=== PATIENT | male | born 1940 | race Hispanic/Latino ===

== ENCOUNTER 2020-11-01 09:12 | Outpatient (CLI) | payer BC, MEDICARE, SELFPAY ==
[2020-11-01 11:24] LABS: Hemoglobin 12.8 g/dL (13.5-17.5); Mean Corpuscular HGB CONC 32.3 g/dL (32.0-36.0); Mean Corpuscular Hemoglobin 27.1 pg (27.0-33.0); Mean Corpuscular Volume 83.7 fl (81.2-95.1); Mean Platelet Volume 10.4 fl (7.4-10.4); Platelet Count 198 10x3/uL (150-450); RBC Distribution Width 14.5 % (11.5-14.5); Red Blood Cell (RBC) Count 4.73 10x6/uL (4.32-5.72); White Blood Cell (WBC) Count 7.8 10x3/uL (3.5-10.5)
[2020-11-01 11:43] LABS: INR-International Normal Ratio 0.9; PTT 25.1 sec (22.0-33.0); Prothrombin Time 10.3 sec (9.5-12.1)
[2020-11-01 12:11] LABS: Anion Gap 14 mmol/L (10-20); BUN (Urea Nitrogen) 16 mg/dL (8.4-25.7); Calc. Creatinine Clearance 0 mL/min (70-130); Calcium 9.2 mg/dL (7.8-10.44); Carbon Dioxide 24 mmol/L (23-31); Chloride 106 mmol/L (98-107); Glucose 135 mg/dL (83-110); Potassium 4.6 mmol/L (3.5-5.1); Sodium 139 mmol/L (136-145)
[2020-11-01 17:59] LABS: SARS-CoV-2 PCR by NAA Not Detected (NotDetected)
== END 2020-11-01 09:13 | disposition home or self-care (01) ==
LOC: CSHLAB 09:12
PROVIDERS: ATTEND Specialist
DX: Z01.812 Encounter for preprocedural laboratory examination (principal); Z20.822 Contact with and (suspected) exposure to COVID-19; I65.29 Occlusion and stenosis of unspecified carotid artery
CPT/HCPCS: 80048; 85027; 85610; 85730; 87635; U0003; U0005

== ENCOUNTER 2020-11-06 07:40 | Inpatient (IN) | payer MEDICARE ==
[2020-11-06] MEDS ORDERED: Heparin 10,000 UNITS/ 10 ML VIAL ONE (08:23)
[2020-11-06] MEDS ORDERED: Adenosine 6 MG/2 ML VIAL ONE (08:23)
[2020-11-06] MEDS ORDERED: Lidocaine 1% (PF) 30 ML VIAL ONE (08:23)
[2020-11-06] MEDS ORDERED: Atropine Sulfate 0.4 mg/1 ml Vial ONE (08:28)
[2020-11-06] MEDS ORDERED: PHENYLEPHRINE-NS 100 MCG/ML 10 ML SYRINGE ONE (08:28)
[2020-11-06] MEDS ORDERED: Phenylephrine 40 MG in Sodium Chloride 0.9% 250 ML 250 ML IVPB SCH (08:30)
[2020-11-06 08:46] VITALS: BMI 31.0
[2020-11-06] MEDS ORDERED: Nitroglycerin 0.4 MG TAB (25 Tab Bottle) SL PRN (13:04)
[2020-11-06] MEDS ORDERED: Sodium Chloride 0.9% 1,000 ML IV SCH (13:15)
[2020-11-06] MEDS: Amlodipine 5 MG TAB PO SCH (21:31)
[2020-11-06] MEDS: Sotalol HCl 80 MG TAB PO SCH (21:32)
[2020-11-06] MEDS ORDERED: HYDROcodone/Acetaminophen 5/325 mg Tablet PO PRN (22:13)
[2020-11-07 04:39] LABS: #Eosinphils 0.4 10x3/uL (0.0-0.5); #Monocytes 0.5 10x3/uL (0.0-1.1); #Neutrophils 2.5 10x3/uL (1.5-8.4); %Basophils 0.4 % (0.0-2.0); %Eosinophils 7.8 % (0.0-6.0); %Lymphocytes 35.8 % (18.0-47.0); %Neutrophils 46.8 % (40.0-75.0); Hemoglobin 11.5 g/dL (13.5-17.5); Mean Corpuscular HGB CONC 31.4 g/dL (32.0-36.0); Mean Corpuscular Hemoglobin 26.9 pg (27.0-33.0); Mean Corpuscular Volume 85.5 fl (81.2-95.1); Platelet Count 155 10x3/uL (150-450); RBC Distribution Width 14.4 % (11.5-14.5); Red Blood Cell (RBC) Count 4.28 10x6/uL (4.32-5.72); White Blood Cell (WBC) Count 5.2 10x3/uL (3.5-10.5)
[2020-11-07 04:55] LABS: ALT (SGPT) 13 U/L (8-55); AST (SGOT) 19 U/L (5-34); Albumin 3.5 g/dL (3.4-4.8); Alkaline Phosphatase 76 U/L (40-110); Anion Gap 11 mmol/L (10-20); BUN (Urea Nitrogen) 16 mg/dL (8.4-25.7); Bilirubin, Total 0.4 mg/dL (0.2-1.2); Calc. Creatinine Clearance 70 mL/min (70-130); Calcium 8.8 mg/dL (7.8-10.44); Carbon Dioxide 26 mmol/L (23-31); Chloride 108 mmol/L (98-107); Glucose 114 mg/dL (83-110); Potassium 3.9 mmol/L (3.5-5.1); Protein, Total 6.5 g/dL (5.8-8.1); Sodium 141 mmol/L (136-145)
[2020-11-07] MEDS ORDERED: Glimepiride 2 MG TAB PO SCH (08:00)
[2020-11-07] MEDS: Amlodipine 5 MG TAB PO SCH (08:47)
[2020-11-07] MEDS: Sotalol HCl 80 MG TAB PO SCH (08:48)
[2020-11-07 08:50] VITALS: BP 114/89
[2020-11-07] MEDS ORDERED: Hydrochlorothiazide 25 MG TAB PO SCH (09:00)
[2020-11-07] MEDS ORDERED: Atorvastatin Calcium 40 MG TAB PO SCH (09:00)
[2020-11-07] MEDS ORDERED: Ascorbic Acid 500 mg Chewable Tablet PO SCH (09:00)
[2020-11-07] MEDS ORDERED: Aspirin 81 mg Enteric Coated Tablet PO SCH (09:00)
[2020-11-07] MEDS ORDERED: Losartan Potassium 50 MG TAB PO SCH (09:00)
[2020-11-07] MEDS ORDERED: Prasugrel 10 MG TAB PO SCH (09:00)
[2020-11-07] MEDS ORDERED: Magnesium Oxide 400 MG TAB PO SCH (09:00)
== END 2020-11-07 13:25 | disposition home or self-care (01) | DRG 35 ==
LOC: CSHSDC 07:40 → CSHICU 12:21
PROVIDERS: ADMIT Specialist; ATTEND Specialist
PROC: 037L34Z Dilation of Left Internal Carotid Artery with Drug-eluting Intraluminal Device, Percutaneous Approach (ICD-10-PCS; principal; 2020-11-06)
PROC: B2151ZZ Fluoroscopy of Left Heart using Low Osmolar Contrast (ICD-10-PCS; 2020-11-06)
DX: I65.23 Occlusion and stenosis of bilateral carotid arteries (principal); I77.2 Rupture of artery; I25.10 Atherosclerotic heart disease of native coronary artery without angina pectoris; Z95.1 Presence of aortocoronary bypass graft; E78.5 Hyperlipidemia, unspecified; E11.9 Type 2 diabetes mellitus without complications; I10 Essential (primary) hypertension; I65.03 Occlusion and stenosis of bilateral vertebral arteries; I48.0 Paroxysmal atrial fibrillation; I73.9 Peripheral vascular disease, unspecified; I25.2 Old myocardial infarction
CPT/HCPCS: 36140; 36215; 36222; 36225; 36227; 36416; 37215; 75710; 80053; 85025; 93005; 93010; 94760; 99152; 99153; C1760; C1876; C1884; C1887; J0153; J0461; J1644; J2001; J2370; J7050

== ENCOUNTER 2021-07-29 15:45 | Emergency (ER) | payer MEDICARE, BC ==
[2021-07-29 16:35] LABS: #Monocytes 0.5 10x3/uL (0.0-1.1); #Neutrophils 7.3 10x3/uL (1.5-8.4); %Basophils 0.4 % (0.0-2.0); %Eosinophils 0.3 % (0.0-6.0); %Lymphocytes 21.9 % (18.0-47.0); %Monocytes 4.6 % (0.0-10.0); %Neutrophils 72.6 % (40.0-75.0); Hemoglobin 9.8 g/dL (13.5-17.5); Mean Corpuscular HGB CONC 32.2 g/dL (32.0-36.0); Mean Corpuscular Hemoglobin 27.5 pg (27.0-33.0); Mean Corpuscular Volume 85.2 fl (81.2-95.1); Mean Platelet Volume 10.4 fl (7.4-10.4); Platelet Count 182 10x3/uL (150-450); RBC Distribution Width 13.8 % (11.5-14.5); Red Blood Cell (RBC) Count 3.57 10x6/uL (4.32-5.72)
[2021-07-29 16:47] LABS: ALT (SGPT) 13 U/L (8-55); AST (SGOT) 26 U/L (5-34); Albumin 4.2 g/dL (3.4-4.8); Alkaline Phosphatase 69 U/L (40-110); Anion Gap 17 mmol/L (10-20); BUN (Urea Nitrogen) 72 mg/dL (8.4-25.7); Bilirubin, Total 0.5 mg/dL (0.2-1.2); Calc. Creatinine Clearance 0 mL/min (70-130); Calcium 9.7 mg/dL (7.8-10.44); Carbon Dioxide 21 mmol/L (23-31); Chloride 104 mmol/L (98-107); Globulin 2.9 g/dL (2.4-3.5); Glucose 64 mg/dL (83-110); Potassium 5.1 mmol/L (3.5-5.1); Protein, Total 7.1 g/dL (5.8-8.1); Sodium 137 mmol/L (136-145)
[2021-07-29 21:01] LABS: Bilirubin Neg (Negative); Blood, Urine Negative (Negative); Clarity Clear (Clear); Glucose, Urine (Dipstick) Normal (Negative); Ketone, Urine 5 mg/dL (Negative); Leukocyte Negative (Negative); Nitrite Negative (Negative); Protein, Urine (Dipstick) Negative (Neg-Trace); Specific Gravity, Urine 1.015 (1.002-1.036); Urobilinogen Normal mg/dL (Less than 2)
[2021-07-29] MEDS ORDERED: Dextrose 50% Abboject 50 ML SYRINGE ONE (21:04)
== END 2021-07-29 22:09 | disposition home or self-care (01) ==
LOC: CSHERS 15:45
DX: E86.0 Dehydration (principal); E11.649 Type 2 diabetes mellitus with hypoglycemia without coma; I10 Essential (primary) hypertension; E78.5 Hyperlipidemia, unspecified
CPT/HCPCS: 36416; 71045; 80053; 81003; 84484; 85025; 93005; 96374

== ENCOUNTER 2021-08-12 16:18 | Inpatient (IN) | payer MEDICARE, BC ==
[2021-08-12 17:52] LABS: #Eosinphils 0.1 10x3/uL (0.0-0.5); #Monocytes 0.4 10x3/uL (0.0-1.1); #Neutrophils 4.4 10x3/uL (1.5-8.4); %Basophils 0.4 % (0.0-2.0); %Eosinophils 1.7 % (0.0-6.0); %Lymphocytes 27.8 % (18.0-47.0); %Monocytes 5.8 % (0.0-10.0); Mean Corpuscular HGB CONC 29.6 g/dL (32.0-36.0); Mean Corpuscular Hemoglobin 25.4 pg (27.0-33.0); Mean Corpuscular Volume 85.8 fl (81.2-95.1); Mean Platelet Volume 9.8 fl (7.4-10.4); Platelet Count 283 10x3/uL (150-450); RBC Distribution Width 15.4 % (11.5-14.5); Red Blood Cell (RBC) Count 1.97 10x6/uL (4.32-5.72); White Blood Cell (WBC) Count 6.9 10x3/uL (3.5-10.5)
[2021-08-12 17:54] LABS: Prothrombin Time 10.6 sec (9.5-12.1)
[2021-08-12 17:57] LABS: PTT Less than 22.0 sec (22.0-33.0)
[2021-08-12 17:58] LABS: ALT (SGPT) 8 U/L (8-55); AST (SGOT) 13 U/L (5-34); Albumin 3.7 g/dL (3.4-4.8); Alkaline Phosphatase 56 U/L (40-110); Anion Gap 17 mmol/L (10-20); BUN (Urea Nitrogen) 36 mg/dL (8.4-25.7); Bilirubin, Total 0.3 mg/dL (0.2-1.2); CK (CPK) 53 U/L (30-200); Calc. Creatinine Clearance 0 mL/min (70-130); Calcium 9.4 mg/dL (7.8-10.44); Carbon Dioxide 21 mmol/L (23-31); Chloride 101 mmol/L (98-107); Globulin 2.8 g/dL (2.4-3.5); Glucose 127 mg/dL (83-110); Lipase 79 U/L (8-78); Potassium 4.6 mmol/L (3.5-5.1); Protein, Total 6.5 g/dL (5.8-8.1); Sodium 134 mmol/L (136-145)
[2021-08-12] MEDS ORDERED: Pantoprazole 40 MG VIAL ONE (18:06)
[2021-08-12] MEDS ORDERED: Acetaminophen 325 MG TAB PO PRN (18:21)
[2021-08-12] MEDS ORDERED: Senokot S 8.6-50 MG TAB PO PRN (18:21)
[2021-08-12] MEDS ORDERED: HYDROcodone/Acetaminophen 5/325 mg Tablet PO PRN (18:21)
[2021-08-12] MEDS ORDERED: Ondansetron PF 4 MG/2 ML Vial IVP PRN (18:21)
[2021-08-12 18:34] LABS: Anisocytosis SLIGHT = 6-15 cells (100X) (0-5/hpf); Hypochromia SLIGHT = 6-15 cells (100X) (0-5/hpf); Platelet Morphology Comment Appears Adequate
[2021-08-12 22:38] LABS: Lactic Acid 2.5 mmol/L (0.5-2.2)
[2021-08-13 00:03] LABS: SARS-CoV-2 NAA Rapid Test Not Detected (NotDetected)
[2021-08-13] MEDS: Pantoprazole 80 MG in Sodium Chloride 0.9% 100 ML IVPB SCH ×3 (00:14→21:41)
[2021-08-13] MEDS: Atorvastatin Calcium 40 MG TAB PO SCH ×2 (00:15→21:27)
[2021-08-13 05:12] LABS: #Basophils 0.1 10x3/uL (0.0-0.2); #Eosinphils 0.2 10x3/uL (0.0-0.5); #Monocytes 0.5 10x3/uL (0.0-1.1); #Neutrophils 4.8 10x3/uL (1.5-8.4); %Basophils 0.8 % (0.0-2.0); %Eosinophils 2.4 % (0.0-6.0); %Lymphocytes 25.5 % (18.0-47.0); %Monocytes 6.5 % (0.0-10.0); %Neutrophils 64.5 % (40.0-75.0); Hemoglobin 9.5 g/dL (13.5-17.5); Mean Corpuscular HGB CONC 32.2 g/dL (32.0-36.0); Mean Corpuscular Hemoglobin 26.8 pg (27.0-33.0); Mean Corpuscular Volume 83.1 fl (81.2-95.1); Mean Platelet Volume 9.4 fl (7.4-10.4); Platelet Count 223 10x3/uL (150-450); RBC Distribution Width 15.6 % (11.5-14.5); Red Blood Cell (RBC) Count 3.55 10x6/uL (4.32-5.72); White Blood Cell (WBC) Count 7.4 10x3/uL (3.5-10.5)
[2021-08-13 05:28] LABS: Anion Gap 13 mmol/L (10-20); BUN (Urea Nitrogen) 26 mg/dL (8.4-25.7); Calc. Creatinine Clearance 65 mL/min (70-130); Carbon Dioxide 21 mmol/L (23-31); Chloride 108 mmol/L (98-107); Glucose 101 mg/dL (83-110); Potassium 4.4 mmol/L (3.5-5.1); Sodium 138 mmol/L (136-145)
[2021-08-13] MEDS: Amlodipine 5 MG TAB PO SCH (08:54)
[2021-08-13] MEDS ORDERED: PROPOFOL 20 ML ONE ×2 (16:56→17:20)
[2021-08-14 04:30] LABS: #Eosinphils 0.2 10x3/uL (0.0-0.5); #Monocytes 0.6 10x3/uL (0.0-1.1); #Neutrophils 4.4 10x3/uL (1.5-8.4); %Basophils 0.6 % (0.0-2.0); %Eosinophils 2.6 % (0.0-6.0); %Lymphocytes 20.9 % (18.0-47.0); %Monocytes 9.5 % (0.0-10.0); %Neutrophils 66.2 % (40.0-75.0); Hemoglobin 9.3 g/dL (13.5-17.5); Mean Corpuscular HGB CONC 32.4 g/dL (32.0-36.0); Mean Corpuscular Hemoglobin 26.6 pg (27.0-33.0); Mean Corpuscular Volume 82.2 fl (81.2-95.1); Mean Platelet Volume 9.4 fl (7.4-10.4); Platelet Count 217 10x3/uL (150-450); RBC Distribution Width 15.5 % (11.5-14.5); Red Blood Cell (RBC) Count 3.49 10x6/uL (4.32-5.72); White Blood Cell (WBC) Count 6.7 10x3/uL (3.5-10.5)
[2021-08-14 04:45] LABS: Anion Gap 12 mmol/L (10-20); BUN (Urea Nitrogen) 16 mg/dL (8.4-25.7); Calc. Creatinine Clearance 60 mL/min (70-130); Calcium 8.8 mg/dL (7.8-10.44); Carbon Dioxide 25 mmol/L (23-31); Chloride 105 mmol/L (98-107); Glucose 184 mg/dL (83-110); Potassium 4.2 mmol/L (3.5-5.1); Sodium 138 mmol/L (136-145)
[2021-08-14] MEDS: Pantoprazole 80 MG in Sodium Chloride 0.9% 100 ML IVPB SCH (06:44)
[2021-08-14] MEDS: Amlodipine 5 MG TAB PO SCH (08:23)
[2021-08-14] MEDS ORDERED: FLU VACC QS2021-22(65YR UP)/PF 240 MCG/0.7 ML SYRINGE IM ONE (09:00)
[2021-08-14] MEDS ORDERED: Losartan 25 MG TAB PO SCH ×2 (10:45→21:00)
[2021-08-14] MEDS ORDERED: Amlodipine 5 MG TAB PO SCH (21:00)
[2021-08-14] MEDS: Sotalol HCl 80 MG TAB PO SCH (21:15)
[2021-08-15 05:33] LABS: #Eosinphils 0.2 10x3/uL (0.0-0.5); #Monocytes 0.7 10x3/uL (0.0-1.1); #Neutrophils 4.5 10x3/uL (1.5-8.4); %Basophils 0.4 % (0.0-2.0); %Eosinophils 3.2 % (0.0-6.0); %Lymphocytes 21.9 % (18.0-47.0); %Neutrophils 64.4 % (40.0-75.0); Hemoglobin 9.4 g/dL (13.5-17.5); Mean Corpuscular HGB CONC 31.2 g/dL (32.0-36.0); Mean Corpuscular Hemoglobin 26.4 pg (27.0-33.0); Mean Corpuscular Volume 84.6 fl (81.2-95.1); Mean Platelet Volume 9.8 fl (7.4-10.4); Platelet Count 215 10x3/uL (150-450); RBC Distribution Width 15.2 % (11.5-14.5); Red Blood Cell (RBC) Count 3.56 10x6/uL (4.32-5.72); White Blood Cell (WBC) Count 6.9 10x3/uL (3.5-10.5)
[2021-08-15 06:28] VITALS: BMI 28.6
[2021-08-15] MEDS ORDERED: Ascorbic Acid 500 mg Chewable Tablet PO SCH (09:00)
[2021-08-15] MEDS ORDERED: Atorvastatin Calcium 40 MG TAB PO SCH (09:00)
[2021-08-15] MEDS: Sotalol HCl 80 MG TAB PO SCH (09:49)
[2021-08-15 12:18] VITALS: BP 124/57; TEMP 98.1
== END 2021-08-15 14:56 | disposition home or self-care (01) | DRG 378 ==
LOC: CSHERS 16:18 → CSHICU 23:54 → CSHTELE 08-14 17:27
PROVIDERS: ADMIT Student in an Organized Health Care Education/Training Program; ATTEND Hospitalist
PROC: 30233N1 Transfusion of Nonautologous Red Blood Cells into Peripheral Vein, Percutaneous Approach (ICD-10-PCS; 2021-08-12)
PROC: 0W3P8ZZ Control Bleeding in Gastrointestinal Tract, Via Natural or Artificial Opening Endoscopic (ICD-10-PCS; principal; 2021-08-13)
DX: K26.4 Chronic or unspecified duodenal ulcer with hemorrhage (principal); D62 Acute posthemorrhagic anemia; K29.71 Gastritis, unspecified, with bleeding; I11.9 Hypertensive heart disease without heart failure; K20.90 Esophagitis, unspecified without bleeding; E11.51 Type 2 diabetes mellitus with diabetic peripheral angiopathy without gangrene; I48.0 Paroxysmal atrial fibrillation; E78.2 Mixed hyperlipidemia; I25.118 Atherosclerotic heart disease of native coronary artery with other forms of angina pectoris; Z20.822 Contact with and (suspected) exposure to COVID-19; Z95.1 Presence of aortocoronary bypass graft; Z95.0 Presence of cardiac pacemaker; Z88.8 Allergy status to other drugs, medicaments and biological substances; Z91.040 Latex allergy status; Z79.899 Other long term (current) drug therapy; Z79.82 Long term (current) use of aspirin
CPT/HCPCS: 36415; 36430; 71045; 74176; 80048; 80053; 82274; 82550; 83605; 83690; 83880; 84484; 85025; 85610; 85730; 86850; 86900; 86901; 87338; 93005; C9113; J2405; J2704; J3490; P9016; U0002

== ENCOUNTER 2022-08-12 15:03 | Outpatient (CLI) | payer MEDICARE | END 2022-08-12 15:04 | disposition home or self-care (01) | LOC: CSHRAD 15:03 | PROVIDERS: ATTEND Physician Assistant Medical | DX: R05.3 Chronic cough (principal) | CPT/HCPCS: 71046 ==